=== PATIENT | male | born 1955 | race Caucasian/White ===

== ENCOUNTER 2025-03-09 11:05 | Emergency (ER) | payer MEDICARE, SELFPAY ==
--- NOTE | 2025-03-09 12:13 | ED_ITS ---
HPI - Dizziness General Chief Complaint: Dizziness Stated Complaint: Vertigo Time Seen by Provider: 03/09/25 15:36 Source: patient Mode of arrival: ambulatory Limitations: no limitations History of Present Illness ED Provider: Aj Barr PA-C HPI Narrative: 69 yo male presenting to the ER for evaluation of dizziness for the last 2 weeks. He states he has been nauseous, and dizzy when he stands up. He is not dizzy at rest. He states when he changes position he gets very dizzy and feels weak. He denies any associated shortness of breath or chest pain. He has had increased thirst and urination. He states he has not been to his PCP in the last 3 years because he is caring for his mother. He last had an A1c greater than 5 which improved with dietary modifications. He has never been diagnosed with diabetes. MD elicited complaint: dizziness Onset (ago): week(s) Severity: moderate Description: lightheadedness Context: change in body position Exacerbating factors: movement/ambulation and change in body position Relieving factors: remaining still and lying down Associated symptoms: nausea Related Data Previous Rx's ?Medication ?Instructions ?Recorded blood sugar diagnostic (FreeStyle #100 ea 03/09/25 Lite Strips) blood-glucose meter (FreeStyle #1 ea 03/09/25 Lite Meter kit) metformin 1,000 mg tablet 1,000 mg PO BID #60 tabs 03/09/25 Allergies Allergy/AdvReac Type Severity Reaction Status Date / Time No Known Allergies Allergy Verified 03/09/25 12:16 Review of Systems 2 Review of Systems: Yes all other systems are reviewed and are negative [facility] Social History Social History Smoked in Last 30 Days: No Use of substances other than those prescribed or required for medical reasons: No Advance Directives: No Advance Directives Information Provided: Yes Physical Exam 2 Vital Signs: Vital Signs: Last Vital Signs Temp 97.4 F 03/09/25 16:00 Pulse 70 03/09/25 16:00 Resp 14 03/09/25 16:00 BP 150/91 H 03/09/25 16:00 Pulse Ox 100 03/09/25 16:00 O2 Del Method Room Air 03/09/25 16:00 BMI result Body Mass Index 31.1 Appearance: Alert. Oriented X3. No acute distress. Head: normocephalic, atraumatic. Eyes: Pupils equal, round and reactive to light. No nystagmus ENT: Pharynx normal. No tonsillar swelling or exudate. Neck: Normal inspection. Neck supple. CVS: Normal heart rate and rhythm. Pulses normal. Respiratory: No respiratory distress. Breath sounds normal. Abdomen: Soft and nontender. +BS x4 Skin: Skin warm and dry. Normal skin color. Normal skin turgor. No rashes. Extremities: No lower extremity edema. No joint swelling. Neuro/psych: Oriented X 3. No motor deficit. No sensory deficit. CN II-XII intact. Normal speech and cognition. Course Course Course Narrative: This is an RME: Additional HPI, ROS, PE not included below will be deferred to primary provider. RME assessment and note performed by: Mirna Hazel PA-C This is a [id number]-male, hypertension and hyperlipidemia, who presents to the ER with complaints of dizziness x 2 weeks. Started after having symptoms 1 day after eye exam. Reports that he went to [facility] for same but LWBS due to prolonged wait times. Denies hx of vertigo, reports family members have it. Reports nausea. Symptoms worsen with positional changes. Neurologically intact. Plan: Labs, EKG Medications Administered Discontinued Medications Generic Name Dose Route Start Last Admin Trade Name Freq PRN Reason Stop Dose Admin Sodium Chloride 1,000 mls @ 999 mls/hr 03/09/25 15:45 03/09/25 17:01 Ns IV 03/09/25 16:45 Infused .Q1H1M LILA Infusion Insulin Human Lispro 8 unit 03/09/25 15:37 03/09/25 15:55 Insulin Lispro 100 Unit/Ml 3 Ml Vial SUBCUT 03/09/25 15:38 8 unit ONCE ONE Administration Medical Decision Making Medical Decision Making MDM Narrative: 69-year-old male with history of hypertension on 20 mg of lisinopril who presents to the ER for evaluation of dizziness for the last 2 weeks. Upon interrogation he reports polyuria and polydipsia for the last several weeks. He has not been to his PCP in years. Serum glucose found to be severely elevated at 485. He has no anion gap. His troponin is negative. He has some mild pseudo hyponatremia. Beta hydroxybutyrate and VBG are normal, not consistent with DKA. Repeat glucose 326 after IV fluids. Subcu insulin was ordered as well. Hemoglobin A1c found to be greater than 14% results discussed with patient. He will need extensive counseling and education regarding his new diabetes diagnosis. Nursing family life educator has been ordered who will contact him on Wednesday in order to set up outpatient education and care He had improvement in his glucose with fluids and insulin. Will start on metformin 1000 mg b.i.d.. He does not want to start on insulin right away, he wants to see if the oral pills can help Advised patient follow-up with his primary care doctor as soon as possible Differential Diagnosis Differential Diagnoses: The differential diagnosis associated with the presentation includes Use diagnosed diabetes, DKA, dehydration, DAREN, vertigo Admission/Observation Consideration of admission/observation: Escalation of care including admission/observation considered Lab Data MDM Lab Attestation statement: I reviewed the patient's lab results. No anemia, no leukocytosis, no anion gap 03/09/25 12:37 03/09/25 12:37 Labs: Lab Results 03/09/25 03/09/25 03/09/25 Range/Units 12:37 15:30 15:41 WBC 8.5 (4.8-10.8) X10*3/uL RBC 4.88 (4.60-5.80) X10*6/uL Hgb 15.1 (14.0-18.0) g/dl Hct 42.3 (42.0-52.0) % MCV 86.7 (80.0-98.0) fL MCH 30.9 (27.0-33.0) pg MCHC 35.7 (31.0-36.0) g/dl RDW 12.4 (11.0-16.0) % Plt Count 240 (160-400) X10*3/uL MPV 9.0 L (9.4-12.4) fL Immature Gran % (Auto) 0.2 (0.0-0.4) % Neut % (Auto) 59.5 (45-73) % Lymph % (Auto) 29.0 (20-40) % Colbert % (Auto) 8.6 (2-11) % Eos % (Auto) 1.9 (0-4) % Baso % (Auto) 0.8 (0-2) % Lymph # (Auto) 2.5 (1.2-4.9) X10*3/uL Colbert # (Auto) 0.7 (0.1-1.2) X10*3/uL Eos # (Auto) 0.2 (0.0-0.4) X10*3/uL Baso # (Auto) 0.1 (0.0-0.2) X10*3/uL Abs Immat Gran (auto) 0.02 (0.00-0.03) X10*3/uL Absolute Neuts (auto) 5.0 (2.0-8.3) x10*3/uL Absolute Nucleated RBC 0.000 (0.0-0.012) X10*3/uL Nucleated RBC % (auto) 0.0 (0.0-0.2) /100WBC VBG pH (7.32-7.43) VBG pCO2 mmHg VBG pO2 mmHg VBG HCO3 (22-26) mmol/L VBG O2 Saturation % VBG Base Excess mmol/L Sodium 131 L (135-145) mmol/L Potassium 4.5 (3.3-5.1) mmol/L Chloride 100 (96-108) mmol/L Carbon Dioxide 23 (22-29) mmol/L Anion Gap 13 (12-20) BUN 20 H (9-16) mg/dL Creatinine 0.88 (0.5-1.4) mg/dL Estim Creat Clear Calc 95.9 Estimated GFR > 60 POC Glucose 326 H (60-115) mg/dL Random Glucose 485 H* (60-115) mg/dL Estimat Average Glucose TNP Hemoglobin A1c % > 14.0 H (<6.0) % Calcium 9.9 (8.4-10.2) mg/dL Magnesium 1.6 (1.6-2.6) mg/dL Total Bilirubin 0.4 (0.0-1.0) mg/dL Direct Bilirubin 0.1 (0.0-0.5) mg/dL AST 22 (5-37) U/L ALT 36 (0-40) U/L Alkaline Phosphatase 75 (39-117) U/L Troponin I High Sens < 2.7 (<3.5-35.0) ng/L Total Protein 6.3 L (6.5-8.0) g/dL Albumin 4.0 (3.5-5.0) g/dL Beta-Hydroxybutyrate 0.11 (0.02-0.27) mmol/L 03/09/25 03/09/25 Range/Units 15:44 17:42 WBC (4.8-10.8) X10*3/uL RBC (4.60-5.80) X10*6/uL Hgb (14.0-18.0) g/dl Hct (42.0-52.0) % MCV (80.0-98.0) fL MCH (27.0-33.0) pg MCHC (31.0-36.0) g/dl RDW (11.0-16.0) % Plt Count (160-400) X10*3/uL MPV (9.4-12.4) fL Immature Gran % (Auto) (0.0-0.4) % Neut % (Auto) (45-73) % Lymph % (Auto) (20-40) % Colbert % (Auto) (2-11) % Eos % (Auto) (0-4) % Baso % (Auto) (0-2) % Lymph # (Auto) (1.2-4.9) X10*3/uL Colbert # (Auto) (0.1-1.2) X10*3/uL Eos # (Auto) (0.0-0.4) X10*3/uL Baso # (Auto) (0.0-0.2) X10*3/uL Abs Immat Gran (auto) (0.00-0.03) X10*3/uL Absolute Neuts (auto) (2.0-8.3) x10*3/uL Absolute Nucleated RBC (0.0-0.012) X10*3/uL Nucleated RBC % (auto) (0.0-0.2) /100WBC VBG pH 7.40 (7.32-7.43) VBG pCO2 45 mmHg VBG pO2 58 mmHg VBG HCO3 28 H (22-26) mmol/L VBG O2 Saturation 83.0 % VBG Base Excess 3.3 mmol/L Sodium (135-145) mmol/L Potassium (3.3-5.1) mmol/L Chloride (96-108) mmol/L Carbon Dioxide (22-29) mmol/L Anion Gap (12-20) BUN (9-16) mg/dL Creatinine (0.5-1.4) mg/dL Estim Creat Clear Calc Estimated GFR POC Glucose 279 H (60-115) mg/dL Random Glucose (60-115) mg/dL Estimat Average Glucose Hemoglobin A1c % (<6.0) % Calcium (8.4-10.2) mg/dL Magnesium (1.6-2.6) mg/dL Total Bilirubin (0.0-1.0) mg/dL Direct Bilirubin (0.0-0.5) mg/dL AST (5-37) U/L ALT (0-40) U/L Alkaline Phosphatase (39-117) U/L Troponin I High Sens (<3.5-35.0) ng/L Total Protein (6.5-8.0) g/dL Albumin (3.5-5.0) g/dL Beta-Hydroxybutyrate (0.02-0.27) mmol/L Independent Interpretation I performed an independent interpretation of an: EKG Interpretation: EKG with normal sinus rhythm, ventricular rate 60 beats per minute, normal QTC, no ST segment elevations or depressions Independent Historian Clinical information obtained from an independent historian. History obtained from or confirmed by: Spouse Prescription Management I considered prescription management with: Other (Insulin, metformin) Chronic Conditions Patient?s care impacted by: Hypertension Critical Care Time Critical Care Time Critical Care Time: Yes Total Critical Care Time: 32 Attestation: I have personally provided critical care time exclusive of time spent on separately billable procedures. Time includes review of lab data, IV fluid boluses, multiple glucose checks, and monitoring for potential decompensation. Intervention performed as documented. Discharge Plan Discharge Clinical Impression: Diabetes mellitus, new onset Patient Disposition: Home, Self-Care Instructions: Type 2 Diabetes in Adults: New Diagnosis (DC), How to Check your Blood Sugar (DC) Additional Instructions: You were found to have new onset diabetes today with hemoglobin A1c >14%! This means your blood glucose was probably in the 400 range for the last several weeks to months. It is important that you check your blood sugars before meals, at least 1-2 times per day. You are being prescribed metformin 1000 mg to take 2 times per day. This medication has a known adverse side effect of diarrhea. If you develop diarrhea recommend taking Imodium for this. You may end up on insulin. It is important that you follow-up with your primary care doctor as soon as possible for management of your new and diabetes You can also try calling the endocrinology office, name and number below to see if you can get in there or management of your diabetes If you develop new or worsening symptoms call 911 or come back to the ER for further evaluation. Prescriptions: New metformin 1,000 mg tablet 1,000 mg PO BID Qty: 60 1RF (DME) blood-glucose meter [FreeStyle Lite Meter] Kit See Rx Instructions .Route Qty: 1 0RF Rx Instructions: As directed (DME) FreeStyle Lite Strips Strip See Rx Instructions .Route Qty: 100 0RF Rx Instructions: As directed Referrals: [facility] [place] [facility] [place]Provider Group] (new DM) Jaquelin Cotto NP [Primary Care Provider] - Print Language: Frisian
[2025-03-09 12:15] VITALS: BP 125/80; PULSE 77; RESP 18; TEMP 36.8; O2SAT 96; BMI 31.1
--- NOTE | 2025-03-09 12:18 | ECG_ITS ---
Test Reason : dizziness Blood Pressure : */* mmHG Vent. Rate : 68 BPM Atrial Rate : 68 BPM P-R Int : 158 ms QRS Dur : 76 ms QT Int : 366 ms P-R-T Axes : 61 8 54 degrees QTcB Int : 389 ms Normal sinus rhythm Normal ECG No previous ECGs available Referred By: Mirna Hazel Electronically Signed By: SALAZAR ALSTON MD
[2025-03-09 12:42] LABS: MANUAL DIFF FLAG NO
[2025-03-09 12:43] LABS: Basophils Absolute Auto 0.1 X10*3/uL (0.0-0.2); Basophils Percent Auto 0.8 % (0-2); Eosinophils Absolute Auto 0.2 X10*3/uL (0.0-0.4); Eosinophils Percent Auto 1.9 % (0-4); Hematocrit 42.3 % (42.0-52.0); Hemoglobin 15.1 g/dl (14.0-18.0); Imm Gran Abs Auto 0.02 X10*3/uL (0.00-0.03); Imm Gran Pct Auto 0.2 % (0.0-0.4); Lymphocytes Absolute Auto 2.5 X10*3/uL (1.2-4.9); Mean Corpuscular HGB Conc 35.7 g/dl (31.0-36.0); Mean Corpuscular Hemoglobin 30.9 pg (27.0-33.0); Mean Corpuscular Volume 86.7 fL (80.0-98.0); Monocytes Absolute Auto 0.7 X10*3/uL (0.1-1.2); Monocytes Percent Auto 8.6 % (2-11); Neutrophils Percent Auto 59.5 % (45-73); Platelet Count 240 X10*3/uL (160-400); Red Blood Count 4.88 X10*6/uL (4.60-5.80); Red Cell Distribution Width 12.4 % (11.0-16.0); White Blood Count 8.5 X10*3/uL (4.8-10.8)
[2025-03-09 12:59] LABS: Alanine Aminotransferase 36 U/L (0-40); Alkaline Phosphatase 75 U/L (39-117); Anion Gap 13 (12-20); Aspartate Amino Transferase 22 U/L (5-37); Bilirubin Direct 0.1 mg/dL (0.0-0.5); Bilirubin Total 0.4 mg/dL (0.0-1.0); Blood Urea Nitrogen 20 mg/dL (9-16); Calcium 9.9 mg/dL (8.4-10.2); Carbon Dioxide 23 mmol/L (22-29); Chloride 100 mmol/L (96-108); Creatinine Clr Calc Pharmacy 95.9; Estimated Glomerular Filt Rate > 60; Glucose Random 485 mg/dL (60-115); Magnesium 1.6 mg/dL (1.6-2.6); Potassium 4.5 mmol/L (3.3-5.1); Sodium 131 mmol/L (135-145); Total Protein 6.3 g/dL (6.5-8.0)
[2025-03-09 13:04] LABS: Troponin-I High Sensitivity < 2.7 ng/L (<3.5-35.0)
[2025-03-09 15:35] LABS: Glucose, Whole Blood 326 mg/dL (60-115)
[2025-03-09 15:48] LABS: VBG Base Excess 3.3 mmol/L; VBG HCO3 28 mmol/L (22-26); VBG pCO2 45 mmHg; VBG pO2 58 mmHg
[2025-03-09 15:48] LABS: Venous Blood Gas Refer to POC result
--- OUTSIDE RECORDS SUMMARY | 2025-03-09 15:51 | XMS_ITS | Clinical Summary ---
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 0 12/21/2019 Active diclofenac (VOLTAREN) 75 MG EC tabletIndications:Rhe umatoid Arthritis Take 75 mg by mouth every 12 (twelve) hours. 0 01/18/2020 Active lisinopril (PRINIVIL,ZESTRIL) tablet 20 mgIndications:Hyperte nsion Take 20 mg by mouth daily. 0 01/18/2020 Active ALPRAZolam (XANAX) 2 MG tabletIndications:Anx iety Take 1 tablet (2 mg total) by mouth every night at bedtime as needed for sleep. 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 01/22/2020 Bipolar disorder, unspecified 01/22/2020 NELL (generalized anxiety disorder) 01/22/2020 Paranoia (psychosis) 01/21/2020 Social History Tobacco Use Types Packs/Day Years Used Date Smoking Tobacco: Never Smokeless Tobacco: Never Sex and Gender Information Value Date Recorded Sex Assigned at Male 01/21/2020 3:44 PM EDT Gender Identity Not on file Sexual Orientation Not on file Last Filed Vital Signs Vital Sign Reading Time Taken Comments Blood Pressure 105/68 01/23/2020 7:38 AM EDT Pulse 80 01/23/2020 7:38 AM EDT Temperature 36.2 ??C (97.2 ??F) 01/23/2020 7:36 AM ED T Respiratory Rate 18 01/23/2020 7:38 AM EDT Oxygen Saturation 97% 01/23/2020 7:36 AM EDT Inhaled Oxygen Concentration - - Weight 101.6 kg (224 lb) 01/21/2020 5:00 PM EDT Height 177.8 cm (5' 10 ) 01/21/2020 5:00 PM EDT Body Mass Index 32.14 01/21/2020 5:00 PM EDT Plan of Treatment Not on file Advance Directives For more information, please contact: [phone] Documents on File Type Date 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
[2025-03-09] MEDS: Insulin Lispro 100 UNIT/ML 3 ML VIAL 8 UNIT SUBCUT (15:55)
[2025-03-09] MEDS: 0.9 % Sodium Chloride 1,000 ML 999 ML IV (15:57)
[2025-03-09 15:58] LABS: Beta-Hydroxybutyrate 0.11 mmol/L (0.02-0.27)
[2025-03-09 15:59] LABS: Hemoglobin A1c % > 14.0 % (<6.0)
[2025-03-09 16:00] VITALS: BP 150/91; PULSE 70; RESP 14; TEMP 36.3; O2SAT 100
[2025-03-09 17:47] LABS: Glucose, Whole Blood 279 mg/dL (60-115)
[2025-03-09 18:00] VITALS: BP 160/88; PULSE 64; RESP 13; TEMP 36.7; O2SAT 100
[2025-03-09 18:45] VITALS: BP 160/88; PULSE 64; RESP 13; TEMP 36.7; O2SAT 100
== END 2025-03-09 19:00 | disposition home or self-care (01) ==
PROVIDERS: Physician Assistant; Physician Assistant Medical; Emergency Provider Emergency Medicine Emergency Medical Services; PCP Nurse Practitioner Family
DX: E11.9 Type 2 diabetes mellitus without complications (principal); R42 Dizziness and giddiness; I10 Essential (primary) hypertension; R11.0 Nausea
CPT/HCPCS: 36415; 80048; 80076; 82010; 82803; 82947; 83036; 83735; 84484; 85025; 93005; 96360; 99284; 99285

== ENCOUNTER → 2025-03-09 12:18 | Outpatient (BNV) | payer MEDICARE, SELFPAY | PROVIDERS: Emergency Provider Emergency Medicine Emergency Medical Services; PCP Nurse Practitioner Family; Visit Provider Internal Medicine Cardiovascular Disease | DX: R42 Dizziness and giddiness (principal) | CPT/HCPCS: 93010 ==

== ENCOUNTER 2025-03-12 10:50 | Outpatient (AMB) | payer MEDICARE, SELFPAY ==
--- NOTE | 2025-03-12 11:25 | MHC.AMDMED ---
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: No Accompanied by: Self / Same As Patient Allergies No Known Allergies Allergy (Verified 03/09/25 12:16) HPI Comprehensive Diabetes Asmnt Most Recent Diabetes Results: Creatinine 0.88 mg/dL (0.5-1.4) 03/09/25 Blood Urea Nitrogen 20 mg/dL (9-16) H 03/09/25 Sodium 131 mmol/L (135-145) L 03/09/25 Potassium 4.5 mmol/L (3.3-5.1) 03/09/25 Chloride 100 mmol/L (96-108) 03/09/25 Carbon Dioxide 23 mmol/L (22-29) 03/09/25 Calcium 9.9 mg/dL (8.4-10.2) 03/09/25 AST 22 U/L (5-37) 03/09/25 ALT 36 U/L (0-40) 03/09/25 Total Protein 6.3 g/dL (6.5-8.0) L 03/09/25 Albumin 4.0 g/dL (3.5-5.0) 03/09/25 Assessment & Plan Assessment & Plan (1) Diabetes: Code(s): E11.9 - Type 2 diabetes mellitus without complications Plan: Diabetes self-management education and support participation record Assessment/scale: 1= needs instructed? 2= needs review? 3= comprehend keep point? 4= demonstrates understanding/ competent? NC= Not Covered Topics Learning Objective: Initial visit Initial or post srvc Initial or post srvc Initial or post srvc Initial or post srvc Initial or post srvc Post srvc Comments Pre Edu-assessment/plan Outcome or reassess Outcome or reassess Outcome or reassess Outcome or reassess Outcome or reassess Outcome or reassess Diabetes pathophysiology 1 Healthy eating 1 Being active 1 Taking medication 1 Monitoring glucose 1 Acute complication 1 Chronic complicated 1 Lifestyle and healthy coping 1 Diabetes distress in support 1 ?Diabetes pathophysiology: ?Defined diabetes med identify own type of diabetes; list 3 options for treating diabetes Healthy eating: ?Described effect of type, amount and ?timing of food on blood glucose; list 3 methods for planning meal Being active: ?State effect of exercise on blood glucose level Taking medication: ?State effect of diabetes medications on diabetes; name diabetes medications taking, action and side effects Monitoring glucose: ?Identify recommended blood glucose targets and personal target Acute complication: ?List symptoms and treatment of hyper and hypoglycemia, DKA, sick day guidelines and guidelines for severe weather or situations of crisis and diabetes supply manage Chronic complication: ?To find the relationship of blood glucose levels to long-term complications of diabetes in screening and preventative measures Lifestyle and healthy coping: ?Described lifestyle and healthy coping strategies to rule out diabetes self-management Diabetes to stress and support: ?Recognize Diabetes to stress and be able to identified support options Learning objectives: The patient was provided with verbal and written education on the following topics as outlined below. The patient met all learning objectives and was able to verbalize understanding and provide teach back of education topics discussed . The patient was provided with the opportunity to ask questions and all questions were answered. Patient Assessment Assess patient education level/literacy/barriers, patient is newly diagnosed with diabetes with A1c greater than 14% on 03/09/2025 Patient is currently on metformin 1000 mg b.i.d. 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 Patient questions/concerns What is Diabetes? Pathophysiology How the body produces and uses insulin Identify type of DM Risk factors Signs of Diabetes Brief overview of Diabetes Management Monitoring blood sugar Following a meal plan Regular exercise Maintaining a healthy weight Taking medication as needed Members of the care team (PCP, RN, MA, RD, CDE, cotton ball bagger) Blood glucose monitoring When/how often to test Target blood sugar ranges Meter Teaching Patient presents today for a nursing visit for glucometer teaching. Type of Meter:Freestyle Lite Patient Education: Patient was instructed and provided with demonstration of the following: Setting date/time Turning meter on/off Retrieving blood glucose log Handwashing Test sites Site rotation Use of lancing device Testing blood glucose Removing and disposing needle from lancing device Safe disposal of sharps Target blood sugar Signs/ symptoms/treatment of hypoglycemia/hyperglycemia Frequency of testing Patient verbalized understanding of education provided and was able to demonstrate proper use of lancing device and glucometer. Blood Glucose at time of visit: ??273? Introduction to Nutrition Importance of healthy diet in managing DM Diet is personalized to individual preference Review patient?s regular diet/food preferences Who prepares meals/does food shopping/ Dining out?/ Barriers? How diet effects glucose Eating 3 balanced meals a day with small, healthy snacks between meals Review food groups Carbohydrates: What is a carbohydrate/Which food/food groups are considered carbohydrates Effect of carbohydrates on blood glucose Portion sizes Reading food labels Basic carb counting (if applicable per nursing assessment) Plate method Meal planning Recommendations: Follow plate method, consistent carbs and read nutritional labels. Smart Goal: Patient will keep meals to 45-60 g of carbohydrate between now and next visit Educational Materials: The patient was provided with the following written educational materials: Planning Healthy Meals Handout Patient Response to instructions: Comprehension of Instructions: Fair Readiness to make changes: Contemplation How confident they feel about making changes: fair Portions of this note were created using voice recognition software, please excuse any words or phrases that may have been misinterpreted. Patient Instructions: Include regular daily activity. ADA recommends 30 minutes of exercise 5 days a week. Weight loss talk to PCP or Abrasives Sales Representative before starting new plan. Test blood sugar as directed; Fasting and 2hpp largest meal. Watch trends in results. Utilize results and to assess how food, physical activity and medications affect blood sugar results. Bring glucometer or CGM to next visit. Be knowledgeable about diabetes medication, its action, side effects, efficacy, toxicity, prescribed dosage, appropriate timing and frequency of administration, effect of missed and delayed doses and instructions for storage, travel and safety. Problem solving techniques to monitor hypo/hyperglycemia episodes and treatments. Reduce risk reduction behaviors, smoking cessation, regular eye, foot and dental examinations. Coding Level of Care Code Est Pt Level 1 (48028) Diagnoses Diabetes E11.9
--- OUTSIDE RECORDS SUMMARY | 2025-03-12 12:19 | XMS_ITS | Clinical Summary ---
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
== END 2025-03-12 11:29 | disposition home or self-care (01) ==
LOC: HO.ENCR 10:51
PROVIDERS: PCP Nurse Practitioner Family; Visit Provider Registered Nurse Diabetes Educator
DX: E11.9 Type 2 diabetes mellitus without complications (principal)

== ENCOUNTER → 2025-03-12 10:50 | Outpatient (BNVA) | payer MEDICARE, SELFPAY | PROVIDERS: PCP Nurse Practitioner Family; Visit Provider Registered Nurse Diabetes Educator | DX: E11.9 Type 2 diabetes mellitus without complications (principal) | CPT/HCPCS: 99211 ==